=== PATIENT | male | born 1970 | race Caucasian/White ===

== ENCOUNTER 2018-10-28 17:18 | Emergency (ER) | payer MEDICAID ==
[~2018-10-28] VITALS: Ht 170.2 cm; Wt 74.0 kg
[2018-10-28 17:22] VITALS: Ht 170.2 cm; Wt 74.0 kg
[2018-10-28] MEDS ORDERED: CEFTRIAXONE 250 MG INJ IM ONE (18:30)
[2018-10-28] MEDS ORDERED: AZITHROMYCIN 500 MG TAB PO ONE (18:30)
[2018-10-28 18:32] VITALS: BP 130/88; PULSE 61; RESP 18
--- NOTE | 2018-10-28 23:35 | ERD ---
ER Documentation Chief Complaint Chief Complaint pt bib family with c/o abd pain starting yesterday HPI Patient is presenting with complaints of discharge from his penis since yesterday as well as dysuria. He also complains of mild right-sided groin pain that aching. No alleviating or exacerbating factors. No abdominal pain. No fevers or chills. No nausea or vomiting. He is monogamous with his but has a suspicion that his has not been monogamous with him. ROS All systems reviewed and are negative except as per history of present illness. Allergies Allergies: Coded Allergies: No Known Allergy (Unverified , 10/28/18) PMhx/Soc Medical and Surgical Hx: pt denies Medical Hx History of Surgery: No Anesthesia Reaction: No Hx Neurological Disorder: No Hx Respiratory Disorders: No Hx Cardiac Disorders: No Hx Psychiatric Problems: No Hx Miscellaneous Medical Probl: No Hx Alcohol Use: No Hx Substance Use: No Hx Tobacco Use: No Smoking Status: Former smoker FmHx Family History: No diabetes Physical Exam Vitals Vital Signs Date Temp Pulse Resp B/P (MAP) Pulse Ox O2 O2 Flow FiO2 Time Delivery Rate 10/28/18 61 18 130/88 100 Room Air 18:32 (102) 10/28/18 70 16 107/71 99 Room Air 18:07 (83) 10/28/18 99.2 60 18 114/53 97 17:22 (73) Physical Exam Const: No acute distress, well-appearing, nontoxic Head: Atraumatic Eyes: Normal Conjunctiva ENT: Normal External Ears, Nose and Mouth. Neck: Full range of motion. No meningismus. No cervical lymphadenopathy Resp: Clear to auscultation bilaterally Cardio: Regular rate and rhythm, no murmurs Abd: Soft, non tender, non distended. Normal bowel sounds. Right inguinal reducible hernia : Bilateral inguinal lymphadenopathy noted.. Discharge from penis. Scrotum and contents palpated, normal without pain or masses Skin: No petechiae or rashes Back: No midline or flank tenderness Neur: Awake and alert Psych: Normal Mood and Affect Results 24 hrs Laboratory Tests Test 10/28/18 18:21 Urine Color YELLOW Urine Clarity CLOUDY Urine pH 5.0 Urine Specific Belding 1.028 Urine Ketones NEGATIVE mg/dL Urine Nitrite NEGATIVE mg/dL Urine Bilirubin NEGATIVE mg/dL Urine Urobilinogen 1+ mg/dL Urine Leukocyte Esterase 3+ Hollie/ul Urine Microscopic RBC 13 /HPF Urine Microscopic WBC > 182 /HPF Urine Bacteria FEW /HPF Urine Mucus MODERATE /HPF Urine Hemoglobin NEGATIVE mg/dL Urine Glucose NEGATIVE mg/dL Urine Total Protein NEGATIVE mg/dl Current Medications Medications Dose Sig/Paolo Start Time Status Last (Trade) Ordered Route PRN Stop Time Admin Dose Reason Admin 1,000 mg ONCE ONCE 10/28/18 DC 10/28/18 Azithromycin PO 18:30 19:11 (Zithromax) 10/28/18 18:31 Ceftriaxone 250 mg ONCE ONCE 10/28/18 DC 10/28/18 Sodium IM 18:30 19:10 (Rocephin) 10/28/18 18:31 Procedures/MDM I explained to the patient that I do have a high suspicion for STD.Recommended treatment and will test his urine. Patient was treated with ceftriaxone IM and azithromycin orally. Recommended his partner get treated as well. I also recommended he see his primary care doctor for other STD testing. Follow-up testing was also recommended. Patient's blood pressure was elevated (>120/80) but appears stable without evidence of hypertension emergency or urgency. The patient was counseled about the risks of hypertension and urged to pursue outpatient monitoring and therapy within a week with their primary care physician. Departure Diagnosis: Primary Impression: Abnormal penile discharge Condition: Stable Patient Instructions: Std, Suspected (Culture Only) Referrals: [facility] YOU HAVE RECEIVED A MEDICAL SCREENING EXAM AND THE RESULTS INDICATE THAT YOU DO NOT HAVE A CONDITION THAT REQUIRES URGENT TREATMENT IN THE EMERGENCY DEPARTMENT. FURTHER EVALUATION AND TREATMENT OF YOUR CONDITION CAN WAIT UNTIL YOU ARE SEEN IN YOUR DOCTORS OFFICE WITHIN THE NEXT 1-2 DAYS. IT IS YOUR RESPONSIBILITY TO MAKE AN APPOINTMENT FOR FOLOW-UP CARE. IF YOU HAVE A PRIMARY DOCTOR --you should call your primary doctor and schedule an appointment IF YOU DO NOT HAVE A PRIMARY DOCTOR YOU CAN CALL OUR PHYSICIAN REFERRAL HOTLINE AT IF YOU CAN NOT AFFORD TO SEE A PHYSICIAN YOU CAN CHOSE FROM THE FOLLOWING [facility] [address] [facility] [address] [facility] [facility] [address] [facility] [address] [facility] [address] [facility]. [facility] [address] Additional Instructions: Return to the ER for any worsening symptoms. Follow-up with your primary care doctor to get tested for other sexually transmitted diseases such as HIV and syphilis. SAMAN WILKERSON MD Oct 28, 2018 23:35
== END 2018-10-28 18:34 | disposition home or self-care (01) ==
LOC: E/R 17:18
DX: R36.9 Urethral discharge, unspecified (principal); Z87.891 Personal history of nicotine dependence
CPT/HCPCS: 81001; 87086; 87591; J0696; Z7610; 99283

== ENCOUNTER 2018-10-29 21:50 | Emergency (ER) | payer SELFPAY ==
[~2018-10-29] VITALS: Ht 167.6 cm; Wt 72.6 kg
[2018-10-29 22:17] VITALS: Ht 167.6 cm; Wt 72.6 kg
== END 2018-10-30 06:34 | disposition left against medical advice (07) ==
LOC: FTE 21:50
DX: Z53.21 Procedure and treatment not carried out due to patient leaving prior to being seen by health care provider (principal)